=== PATIENT | female | born 1995 | race Caucasian/White ===

== ENCOUNTER 2018-06-27 04:10 | Emergency (ER) | payer OTHER ==
[2018-06-27 04:24] VITALS: BP 130/71
--- NOTE | 2018-06-27 04:30 | EDM.PDOC ---
ED HPI GENERAL MEDICAL PROBLEM - General Chief Complaint: Upper Extremity Injury/Pain Stated Complaint: crush injury left 5th finger Time Seen by Provider: 06/27/18 04:25 Source of Information: Reports: Patient, Old Records ([facility] chart/EMR) History Limitations: Reports: No Limitations - History of Present Illness INITIAL COMMENTS - FREE TEXT/NARRATIVE: Patient was brought to the emergency room via transport vehicle from [facility] for evaluation of a Workmen's Compensation injury, which occurred at about 03:45 hours this morning. She was working when a Jig crushed her fifth left finger with the patient pulling out her finger. Obvious laceration with no previous injury to this digit in the past. She denies any complaints in any other portions of her left hand. She is right-handed. Her last DTaP was given on , which was confirmed by the ER nurse today by IRVING. No history of paresthesias, neurological deficits, complaints of injuries. She did feel somewhat lightheaded and nauseous secondary to the pain and injury with no emesis, etc.. She rates her discomfort at 9-10/10. Ice packs and dressing were conducted prior to transfer with no other pain medications, wound care, etc.. The patient denies any chest pain/pressure, heart flutter, dizziness, orthostasis, orthopnea, diaphoresis, paresthesias, recent decreased exercise tolerance, or any other anginal-type symptoms. No recent history of abdominal pain, heartburn, nausea, diarrhea, melena, gross hematochezia, or any food intolerance, including fatty foods, etc., although she has been some problems with constipation. The patient also denies any recent fever, cough, wheezing, dyspnea, etc.. The patient was wearing a glove at the time of the injury Onset: Today, Sudden Onset Date: 06/27/18 Onset Time: 03:45 Duration: Constant Location: Reports: Upper Extremity, Left. Denies: Radiates to Quality: Reports: Sharp, Throbbing Severity: Severe Improves with: Reports: Rest Worsens with: Reports: Movement Context: Reports: Trauma (As above) Associated Symptoms: Reports: Nausea/Vomiting (No emesis). 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 Denies: Fracture Psychiatric History: Reports: Anxiety, Depression Endocrine/Metabolic History: Reports: Obesity/BMI 30+ - Past Surgical History HEENT Surgical History: Reports: Adenoidectomy, Tonsillectomy, Other (See Below) Other HEENT Surgeries/Procedures: Tonsillectomy and adenoidectomy at age 21 Social & Family History - Tobacco Use Smoking Status *Q: Never Smoker Tobacco Use Within Last Twelve Months: No Used Tobacco, but Quit: No Smoking Cessation Information Provided To Patient: No Second Hand Smoke Exposure: No Second Hand Smoke Education Provided: No - Living Situation & Occupation Living situation: Reports: Alone Occupation: Employed ([employer]) Review of Systems - Review of Systems Review Of Systems: ROS reveals no pertinent complaints other than HPI. ED EXAM, GENERAL - Physical Exam Exam: See Below Exam Limited By: No Limitations General Appearance: Alert, WD/WN, No Apparent Distress, Anxious (Moderate) Head: Atraumatic, Normocephalic Neck: Normal Inspection, Supple, Non-Tender, Full Range of Motion. No: Lymphadenopathy (L), Lymphadenopathy (R), Thyromegaly Respiratory/Chest: No Respiratory Distress, Lungs Clear, Normal Breath Sounds, No Accessory Muscle Use, Chest Non-Tender. No: Pleural Rub, Retractions Cardiovascular: Normal Peripheral Pulses, Regular Rate, Rhythm, No Edema, No Gallop, No JVD, No Murmur, No Rub. No: Gallop/S3, Gallop/S4, Friction Rub Peripheral Pulses: 2+: Radial (L), Radial (R) GI/Abdominal: Normal Bowel Sounds, Soft, Non-Tender, No Organomegaly, No Distention, No Abnormal Bruit, No Mass, Pelvis Stable. No: Guarding (Female) Exam: Deferred Rectal (Female) Exam: Deferred Back Exam: Normal Inspection, Full Range of Motion. No: CVA Tenderness (L), CVA Tenderness (R), Muscle Spasm Neurological: Alert, Oriented, CN II-XII Intact, Normal Cognition, Normal Gait, No Motor/Sensory Deficits Psychiatric: Anxious (Moderate). No: Depressed Mood Skin Exam: Wound/Incision (As above) Lymphatic: No Adenopathy ED TRAUMA EXTREMITY PROCEDURES - Laceration/Wound Repair Left Distal Hand Lac/Wound Length In cm: 2.5 Appearance: Subcutaneous, Stellate, Irregular, Mildly Contaminated Distal NVT: Neuro & Vascular Intact, No Tendon Injury Anesthetic Type: Local Local Anesthesia - Lidocaine (Xylocaine): 0.5% Plain Local Anesthetic Volume: Other (8 ml) Skin Prep: Providone-Iodine (Betadine) Saline Irrigation (cc's): 10 Exploration/Debridement/Repair: Wound Explored, In a Bloodless Field, Explored to Base, No Foreign Material Found, Multiple Flaps Aligned Closed With: Sutures Suture Size: 4-0 # of Sutures: 11 Suture Type: Nylon, Interrupted, Simple Drain Placement: No Sterile Dressing Applied: Nurse Tetanus Status Addressed: Yes Complications: No Course - Vital Signs Last Recorded V/S: Last Vital Signs Temp 37.3 C 06/27/18 04:19 Pulse 79 06/27/18 04:19 Resp 22 H 06/27/18 04:19 BP 130/71 06/27/18 04:19 Pulse Ox 100 06/27/18 04:19 Vital Signs - 24 hr 06/27/18 04:19 Temperature [ 37.3 C Temporal] Pulse, 79 Peripheral [ Right Brachial] Respiratory 22 H Rate Blood Pressure 130/71 [Right Upper Arm] O2 Sat by Pulse 100 Oximetry - Orders/Labs/Meds Orders: Active Orders 24 hr Category Date Time Status Peripheral IV Care [RC] . DIRECTED Care 06/27/18 04:31 Active Vaccines to be Administered [RC] PER UNIT ROUTINE Care 06/27/18 04:34 Active Fingers Fifth Digit Lt F4 [CR] Stat Exams 06/27/18 04:31 Ordered Sodium Chloride 0.9% [Saline Flush] Med 06/27/18 04:31 Active 10 ml FLUSH ASDIRECTED PRN Durable Medical Equipment for Discharge [DME for Oth 06/27/18 04:34 Ordered Discharge] [COMM] Routine Obtain Past Medical Record [OM.PC] Routine Oth 06/27/18 04:30 Active Peripheral IV Insertion Adult [OM.PC] Routine Oth 06/27/18 04:31 Ordered Medication Orders Sodium Chloride (Saline Flush) 10 ml FLUSH ASDIRECTED PRN PRN Reason: Keep Vein Open Last Admin: 06/27/18 04:39 Dose: 10 ml Labs: None Meds: Medications Generic Name Dose Route Start Last Admin Trade Name Freq PRN Reason Stop Dose Admin Sodium Chloride 10 ml 06/27/18 04:31 06/27/18 04:39 Saline Flush FLUSH 10 ml ASDIRECTED PRN Administration Keep Vein Open Discontinued Medications Generic Name Dose Route Start Last Admin Trade Name Freq PRN Reason Stop Dose Admin Diphtheria/Tetanus/Acell Pertussis 0.5 ml 06/27/18 04:33 06/27/18 04:48 Adacel IM 06/27/18 04:34 0.5 ml .ONCE ONE Administration Fentanyl 100 mcg 06/27/18 04:32 06/27/18 04:38 Sublimaze IVPUSH 06/27/18 04:33 100 mcg ONETIME ONE Administration Lidocaine HCl 50 ml 06/27/18 04:33 06/27/18 04:53 Xylocaine-Mpf 0.5% INJECT 06/27/18 04:34 50 ml ONETIME ONE Administration Neomycin/Polymyxin/Bacitracin 1 each 06/27/18 04:33 06/27/18 04:53 Triple Antibiotic Oint TOP 06/27/18 04:34 1 each ONETIME ONE Administration Ondansetron HCl 4 mg 06/27/18 04:32 06/27/18 04:38 Zofran IVPUSH 06/27/18 04:33 4 mg ONETIME ONE Administration See laceration repair for exact dose of lidocaine used - Radiology Interpretation Free Text/Narrative:: X-rays of digit #5 of the left hand, complete, shows evidence of a mildly displaced tuft fracture and soft tissue injury with no evidence of dislocation. Possible mild foreign body noted Departure - Departure Time of Disposition: 06:00 Disposition: Home, Self-Care 01 Condition: Good Clinical Impression: Laceration, Peptic reflux disease, Mixed anxiety depressive disorder, Finger fracture, left - Discharge Information *PRESCRIPTION DRUG MONITORING PROGRAM REVIEWED*: Not Applicable *COPY OF PRESCRIPTION DRUG MONITORING REPORT IN PATIENT STEFANI: Not Applicable Prescriptions: Amoxicillin/Potassium Clav [Augmentin 875-125 Tablet] 1 each PO BIDMEALS #20 tablet Instructions: Finger Fracture, [id number], Crush Injury of the Hand, Easy-to- Read, Laceration Care, Adult, [id number], Stitches, Fatou, or Adhesive Wound Closure, [id number] Referrals: Awa Vallecillo PA-C [Primary Care Provider] - Forms: ED Department Discharge Additional Instructions: 1. Followup with your regular provider in 10-14 days as directed for reevaluation, repeat x-rays of your finger, and suture removal. Bring these discharge instructions with you to that visit. 2. Tylenol 650 mg by mouth every 4 hours and/or OTC ibuprofen 2-3 tabs by mouth every 6 hours with food as directed./needed. 3. Antibacterial soap wash/soak with subsequent antibacterial dressing such as Neosporin, etc. as directed 2 times per day until the wound or laceration site completely heals. Keep the area clean and dry with activity restrictions as discussed. 4. Wear finger splint at all times with exception of wound care and bathing 5. Sedation precautions with no driving, etc. for 18 hours because of emergency room medications. 6. Work excuse- See Form 7. Immediately after this visit verify that your cellular telephone's voicemail has been activated and is empty. Also verify that your home telephone 's answering machine is operating properly and has space to receive messages. Note that it is sometimes necessary for us to be able to contact you at a later date to discuss your medical care. - Problem List & Annotations (1) Laceration SNOMED Code(s): 597563111 Code(s): KQM1100 - Status: Acute Priority: High Onset Date: 06/27/18 Annotation/Comment:: Crush injury as above. A trauma code was immediately considered in this patient secondary to the mechanism of injury, however based on the clinical presentation of the patient, previous history, etc. this provider did not feel that a trauma code would affect the patient's level of care and was not warranted. TdAP was given in the emergency room. Excellent results with laceration repair as above. Patient is aware that she may lose her fingernail. Secondary to mild tuft fracture as above patient was started on Augmentin. Activity restrictions, wound care, etc. were discussed. Workmen's Compensation and [employer] work excuse forms were completed. Despite x-ray findings no evidence of foreign body, including glove, etc. after extensive expiration of the laceration site. (2) Finger fracture, left SNOMED Code(s): 56589155 Code(s): S62.609A - FRACTURE OF UNSP PHALANX OF UNSP FINGER, INIT FOR CLOS FX Status: Acute Priority: High Current Visit: Yes Onset Date: 06/27/18 Annotation/Comment:: Crush injury as above with secondary minor open fracture.. Finger splint provided. Close follow-up by regular provider. Qualifiers: Encounter type: initial encounter Finger: little finger Fracture type: open Phalanx: distal Fracture alignment: displaced Qualified Code(s): S62.637B - Displaced fracture of distal phalanx of left little finger, initial encounter for open fracture (3) Peptic reflux disease SNOMED Code(s): 050753478 Code(s): K21.9 - GASTRO-ESOPHAGEAL REFLUX DISEASE WITHOUT ESOPHAGITIS Status: Chronic Priority: Medium Annotation/Comment:: Stable by patient history with no current medications required. (4) Mixed anxiety depressive disorder SNOMED Code(s): 412536401 Code(s): F41.8 - OTHER SPECIFIED ANXIETY DISORDERS Status: Chronic Priority: Medium Current Visit: Yes Annotation/Comment:: Moderate control based on today's exam. Continue current counseling. - Problem List Review Problem List Initiated/Reviewed/Updated: Yes - My Orders Last 24 Hours: My Active Orders 06/27/18 04:30 Obtain Past Medical Record [OM.PC] Routine 06/27/18 04:31 Peripheral IV Care [RC] . DIRECTED Fingers Fifth Digit Lt F4 [CR] Stat Sodium Chloride 0.9% [Saline Flush] 10 ml FLUSH ASDIRECTED PRN Peripheral IV Insertion Adult [OM.PC] Routine 06/27/18 04:34 Vaccines to be Administered [RC] PER UNIT ROUTINE Durable Medical Equipment for Discharge [DME for Discharge] [COMM] Routine - Assessment/Plan Last 24 Hours: My Active Orders 06/27/18 04:30 Obtain Past Medical Record [OM.PC] Routine 06/27/18 04:31 Peripheral IV Care [RC] . DIRECTED Fingers Fifth Digit Lt F4 [CR] Stat Sodium Chloride 0.9% [Saline Flush] 10 ml FLUSH ASDIRECTED PRN Peripheral IV Insertion Adult [OM.PC] Routine 06/27/18 04:34 Vaccines to be Administered [RC] PER UNIT ROUTINE Durable Medical Equipment for Discharge [DME for Discharge] [COMM] Routine Assessment:: As above Plan: As above. Extensive precautions were given to the patient, who is in agreement with the treatment plan. See Patient Instructions for further treatment and plan.
[2018-06-27] MEDS ORDERED: Sodium Chloride 0.9% 10 ML Syringe FLUSH PRN (04:31)
[2018-06-27] MEDS ORDERED: fentaNYL 100 MCG/2 ML SDV IVPUSH ONE (04:32)
[2018-06-27] MEDS ORDERED: Ondansetron 4 MG/2 ML SDV IVPUSH ONE (04:32)
[2018-06-27] MEDS ORDERED: Diphtheria,Pertussis(Acell),Tetanus Vaccine 0.5 ML SDV IM ONE (04:33)
[2018-06-27] MEDS ORDERED: Lidocaine 0.5% 50 ML SDV INJECT ONE (04:33)
[2018-06-27] MEDS ORDERED: Bacitracin/Neomycin/Polymyxin B Oint 0.9 GM U/D Packet TOP ONE (04:33)
== END 2018-06-27 06:10 | disposition home or self-care (01) ==
LOC: LL.ED 04:10
DX: S62.637A Displaced fracture of distal phalanx of left little finger, initial encounter for closed fracture (principal); S61.412A Laceration without foreign body of left hand, initial encounter; K21.9 Gastro-esophageal reflux disease without esophagitis; F41.8 Other specified anxiety disorders; Y99.0 Civilian activity done for income or pay; W23.1XXA Caught, crushed, jammed, or pinched between stationary objects, initial encounter
CPT/HCPCS: 12001; 73140-F4; 90471; 90715; 96374; 96375; 99283; J2405; J3010; J7050

== ENCOUNTER 2020-11-08 22:53 | Emergency (ER) | payer BC, OTHER ==
[2020-11-08 23:11] VITALS: BP 127/62; PULSE 67
[2020-11-08] MEDS ORDERED: Ketorolac 60 MG/2 ML SDV IM ONE (23:23)
[2020-11-08] MEDS ORDERED: methylPREDNISolone Sodium Succinate 125 MG/2 ML SDV IM ONE (23:24)
--- NOTE | 2020-11-08 23:29 | EDM.PDOC ---
ED HPI GENERAL MEDICAL PROBLEM - General Chief Complaint: Back Pain or Injury Stated Complaint: Back pain Time Seen by Provider: 11/08/20 23:06 Source of Information: Reports: Patient History Limitations: Reports: No Limitations - History of Present Illness INITIAL COMMENTS - FREE TEXT/NARRATIVE: Pt with low back pain Pain is in mid-line Did extend down right leg to knee earlier this evening No wlocalized to low back HAs hx/o same in past Pt states this episode began 2 weeks ago was seen by chiropractor 3 days ago Onset: Gradual Duration: Week(s):, Getting Worse Location: Reports: Back Lower Back Pain Score (Numeric/FACES): 8 - Related Data Allergies Allergy/AdvReac Type Severity Reaction Status Date / Time No Known Allergies Allergy Verified 11/08/20 23:24 Home Meds: Home Meds ARIPiprazole [Abilify] 5 mg PO DAILY 11/08/20 [History] Naproxen 500 mg PO Q12HR PRN 11/08/20 [History] Past Medical History Gastrointestinal History: Reports: GERD Musculoskeletal History: Reports: Back Pain, Chronic, Osteoarthritis Psychiatric History: Reports: Anxiety, Depression Endocrine/Metabolic History: Reports: Obesity/BMI 30+ - Past Surgical History HEENT Surgical History: Reports: Adenoidectomy, Tonsillectomy, Other (See Below) Other HEENT Surgeries/Procedures: Tonsillectomy and adenoidectomy at age 21 Social & Family History - Tobacco Use Tobacco Use Status *Q: Never Tobacco User Second Hand Smoke Exposure: No - Caffeine Use Caffeine Use: Reports: None - Recreational Drug Use Recreational Drug Use: No - Living Situation & Occupation Living situation: Reports: Alone Occupation: Employed ([employer] ED ROS GENERAL - Review of Systems Review Of Systems: See Below Constitutional: Reports: No Symptoms HEENT: Reports: No Symptoms Respiratory: Reports: No Symptoms Cardiovascular: Reports: No Symptoms Endocrine: Reports: No Symptoms GI/Abdominal: Reports: No Symptoms : Reports: No Symptoms Musculoskeletal: Reports: Back Pain Neurological: Reports: No Symptoms ED EXAM,LOWER BACK PAIN/INJURY - Physical Exam Exam: See Below Exam Limited By: No Limitations General Appearance: Alert, WD/WN, Mild Distress Extremities: Other (Lumbar area tender diffusely Pt improved with standing) Neurological: No Motor/Sensory Deficits Course - Vital Signs Last Recorded V/S: Last Vital Signs Temp 98.3 F 11/08/20 23:10 Pulse 67 11/08/20 23:10 Resp 14 11/08/20 23:10 BP 127/62 11/08/20 23:10 Pulse Ox 100 11/08/20 23:10 - Orders/Labs/Meds Meds: Medications Discontinued Medications Generic Name Dose Route Start Last Admin Trade Name Wade PRN Reason Stop Dose Admin Ketorolac Tromethamine 60 mg 11/08/20 23:23 Toradol IM 11/08/20 23:24 ONETIME ONE Methylprednisolone Sodium Succinate 125 mg 11/08/20 23:24 Solu-Medrol IM 11/08/20 23:25 ONETIME ONE - Re-Assessments/Exams Free Text/Narrative Re-Assessment/Exam: 11/08/20 23:27 Pt given Toradol 60 mg IM and Solu-medrol 125 mg IM in ER Departure - Departure Time of Disposition: 23:30 Disposition: Home, Self-Care 01 Clinical Impression: Low back pain Qualifiers: Chronicity: acute Back pain laterality: midline Sciatica presence: with sciatica Sciatica laterality: sciatica of right side Qualified Code(s): M54.41 - Lumbago with sciatica, right side - Discharge Information *PRESCRIPTION DRUG MONITORING PROGRAM REVIEWED*: Not Applicable *COPY OF PRESCRIPTION DRUG MONITORING REPORT IN PATIENT STEFANI: Not Applicable Instructions: Acute Back Pain, Adult Referrals: Awa Vallecillo PA-C [Primary Care Provider] - Additional Instructions: Ice as needed Follow up in clinic Sepsis Event Note (ED) - Evaluation Sepsis Screening Result: No Definite Risk - Focused Exam Vital Signs: Vital Signs Temp Pulse Resp BP Pulse Ox 11/08/20 23:10 98.3 F 67 14 127/62 100
== END 2020-11-09 00:01 | disposition home or self-care (01) ==
LOC: LL.ED 22:53
DX: M54.41 Lumbago with sciatica, right side (principal); E66.9 Obesity, unspecified; Z68.35 Body mass index [BMI] 35.0-35.9, adult
CPT/HCPCS: 96372; 99283; J1885; J2930

== ENCOUNTER 2021-10-20 22:26 | Emergency (ER) | payer BC ==
[2021-10-20] MEDS: Bupivacaine 0.5% 10 ML SDV INJECT ONE (23:10)
[2021-10-20 23:15] VITALS: BP 114/73; PULSE 80
== END 2021-10-20 23:50 | disposition home or self-care (01) ==
LOC: LL.ED 22:26
DX: M54.16 Radiculopathy, lumbar region (principal); M54.41 Lumbago with sciatica, right side; E66.9 Obesity, unspecified; Z68.30 Body mass index [BMI] 30.0-30.9, adult
CPT/HCPCS: 20552; 99283; J3490